=== PATIENT | male | born 1955 | race African-American/Black ===

== ENCOUNTER 2016-12-27 17:00 | Inpatient (IN) | payer OTHER ==
--- NOTE | ~2016-12-27 | HP ---
Unit #: [id number] #: [id number] Patient: ANTONY CORRAL [id number] [facility] [address] [place] [address] [id number] I MR#: [id number] NAME: ANTONY CORRAL ROOM: P203 Age: 61 Sex: M Admission Date: 12/27/2016 : 1955 Attending Physician: Kaiden Lopez M.D. Admitting Physician: Kaiden Lopez M.D. Primary Care Physician: [facility] HISTORY AND PHYSICAL HISTORY OF PRESENT ILLNESS Antony is a 61 year old, admitted to [address] [place] [address] because of his abuse of alcohol. PAST MEDICAL HISTORY 1. Long history of alcohol abuse. 2. High blood pressure. 3. History of DVTs with PE. 4. Hyperlipidemia. 5. Benign prostatic hypertrophy. 6. Chronic obstructive pulmonary disease. PAST SURGICAL HISTORY Nothing reported. ALLERGIES No known drug allergies. SOCIAL HISTORY He smokes one pack per day, drinks at least a fifth of gin on a daily basis, uses marijuana daily, has a long history of other illicit substance abuse to include IV opioids. FAMILY HISTORY Medically noncontributory. REVIEW OF SYSTEMS CONSTITUTIONAL: No fever or chills. HEENT: Denies any sore throat, ear pain or runny nose. CARDIOVASCULAR: Denies chest pain, irregular heart rhythm or palpitations. CHEST: Denies shortness of breath or cough. No hemoptysis. GASTROINTESTINAL: Denies nausea, vomiting, diarrhea or chronic constipation. ENDOCRINE: Denies history of increased thirst or urination. No recent significant weight loss or gain. GENITOURINARY: Denies dysuria, frequency, or hematuria. SKIN: Denies any rashes. HEMATOLOGIC: Denies history of increased bleeding or bruising. MUSCULOSKELETAL: Denies any hot, swollen joints. No generalized muscle pain. NEUROLOGIC: Denies problems with vision or speech. No frequent, severe headaches. No numbness, tingling or weakness in any extremities. Denies loss of bladder or bowel control. Unit #: [id number] #: [id number] Patient: ANTONY CORRAL CURRENT MEDICATIONS 1. Arixtra 7.5 mg daily 2. Lipitor 80 mg daily 3. Milk of magnesia p.r.n. 4. Maalox p.r.n. 5. Tylenol p.r.n. 6. Proventil inhaler p.r.n. 7. Nicotine patch 21 mg daily 8. Coreg 25 mg b.i.d. 9. Flomax 0.8 mg daily 10. Norvasc 10 mg daily 11. Multivitamin one daily 12. Detox protocol PHYSICAL EXAMINATION GENERAL: Alert, well-nourished, no apparent distress. VITAL SIGNS: Blood pressure 100/66, heart rate 80, respirations 16, temperature 98.6. WEIGHT: 175 pounds. HEIGHT: 6 feet 1 inch. SKIN: Warm and dry without rash or lesion. HEENT: Normocephalic. TMs not viewed. Oral and nasal passages clear. Conjunctivae clear. PERRLA. EOMs intact. NECK: Supple without lymphadenopathy or thyromegaly. HEART: Regular rate and rhythm without murmur. LUNGS: Clear. ABDOMEN: Soft, nontender. : Not done. EXTREMITIES: No evidence of cyanosis, clubbing or edema. Moves all without focal deficit. NEUROLOGICAL: Grossly within normal limits. Cranial Nerves: II: Visual huizar are intact. III, IV AND : Extraocular movements are intact. Pupils are equal, round and reactive to light. V: Facial sensation is grossly normal. VII: Facial movements and expression are normal. VIII: Auditory acuity grossly intact. IX, X: Uvula is midline. Phonation is normal. XI: Patient shrugs shoulders and turns head normally. XII: Tongue protrudes in the midline. Sensory and Motor Function: Sensory and motor sensation is grossly normal. Motor: moves all extremities well. Coordination: Gait is normal. Deep Tendon Reflexes: Intact. IMPRESSION Psychiatric admission. RECOMMENDATIONS Psychiatric, per psychiatrist. MEDICAL I see no contraindications to participating in facility's activities. MEDICAL PROGNOSIS Good. MEDICAL CONDITION Stable. Unit #: [id number] #: [id number] Patient: ANTONY CORRAL Dictated by... Jamilah Jennings P.A.-C. for Darcy Kirkpatrick/diane TD: 12/29/2016 05:59 JOB #: [id number] HISTORY AND PHYSICAL Page 1 of 1 X Jamilah Jennings X HISTORY AND PHYSICAL
--- NOTE | ~2016-12-27 | DS ---
Unit #: [id number] #: [id number] Patient: ANTONY CORRAL [id number] [place] [address] [id number] MR#: [id number] NAME: ANTONY CORRAL ROOM: P201 Age: 61 Sex: M Admission Date: 12/27/2016 : 1955 Discharge Date: 12/30/2016 Attending Physician: Kaiden Lopez M.D. Primary Care Physician: [facility] DISCHARGE SUMMARY REASON FOR ADMISSION Alcohol dependency with detox needs. DIAGNOSTIC STUDIES PERTINENT LABORATORY DATA: The patient had routine blood work which included a CMP that showed elevated glucose at 148, chloride of 98, AST of 117, and ALT of 44 in keeping with the patient's history. CBC was pending at the time of discharge. Urine toxicology was negative. RPR was nonreactive. Urinalysis showed trace leukocytes, trace protein, 2+ urobilinogen, and 0 bacteria. No other tests performed. HOSPITAL COURSE The patient was admitted for safety and stabilization for issues with alcohol dependency and withdrawal. The patient had initially been complaining of symptoms of aches and pains "feeling sick," upset stomach, as well as sleep issues and headaches, aches and pains, poor motivation, anergy, restless legs, diaphoresis, and of course tremors. The patient responded well to the detox protocol. Seems fairly isolative to self but pleasant. Denied any issues in terms of suicidal or homicidal thoughts. No evidence of psychosis. This happened during the hospitalization. The patient was maintained on his home medication regimen with no changes. The patient was allowed to use some of his home meds because of pharmacy availability issues overall. By the time of discharge, the patient had markedly improved and is exhibiting no overt detox symptoms. His affect was brighter. He was asking for discharge home with plan to follow up at [facility] and/or . He denied any new complaints. No other medications were started during this hospitalization beyond the detox meds, and the patient was not dispositioned home on anything beyond his home regimen. Overall, the patient was (1) __ maximum benefit from inpatient admission and was discharged home. DISCHARGE DIAGNOSES 1. Alcohol dependency with withdrawal. 2. History of coronary artery disease. 3. Hypertension. 4. Hypercoagulable state. 5. Hyperlipidemia. 6. Vague respiratory issues. The patient could not quantify. DISCHARGE INSTRUCTIONS Follow up with [facility]. 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 CONDITION AT DISCHARGE Improved. PROGNOSIS Moderate. Some guarded as given with the patient's history of long-term use and continued use. DISCHARGE DIET Heart healthy. DISCHARGE ACTIVITY As tolerated with sobriety encouraged. Dictated by... Kaiden Lopez M.D. ROB/donn TD: 12/30/2016 10:34 JOB #: [id number] DISCHARGE SUMMARY Page 1 of 1 X Kaiden Lopez MD X DISCHARGE SUMMARY
--- NOTE | ~2016-12-27 | PN ---
Unit #: [id number] #: [id number] Patient: ANTONY CORRAL [id number] [place] [address] [id number] I MR#: [id number] NAME: ANTONY CORRAL ROOM: P201 Age: 61 Sex: M Admission Date: 12/27/2016 : 1955 Attending Physician: Kaiden Lopez M.D. Admitting Physician: Kaiden Lopez M.D. Primary Care Physician: [facility] PROGRESS NOTES DATE OF SERVICE: 12/29/2016 [facility], [address] [place] [address], room #203, bed #1. SUBJECTIVE This is a 61-year-old male with ongoing issues of alcohol dependency as well as related mood issues. The patient reports still feeling pretty poorly in terms of poor energy, aches and pains, upset stomach, restless legs, mild tremor today, less diaphoretic. He reports sleep was improved overnight. The patient says he does feel a little bit better today, but still having symptoms as noted. Denied any SI. The patient seems much brighter and seemed somewhat brighter in his affect today. MENTAL STATUS EXAMINATION General appearance; this is a moderately groomed male, appears somewhat older than stated age, though good cooperation, eye contact. Speech was clear and coherent. Normal prosody. Mood was "little bit better," less depressed, anxious with a constricted affect. Thought process and content are grossly organized and linear. No overt evidence of psychosis. No SI, no HI reported or elicited. The patient's memory was grossly intact. Associations were normal. Cognitive function was at baseline. Alert and oriented x4. Insight and judgment are limited, but improving. RECOMMENDATIONS We will continue the patient's admission for ongoing issues with detox symptoms as noted above. The patient making progress, but stabilization still an ongoing concern. We will continue to monitor regularly and make adjustments as needed, but likely disposition to center as progress continues. Dictated by... Kaiden Lopez M.D. SB/modl TD: 12/29/2016 12:38 JOB #: [id number] Unit #: [id number] #: [id number] Patient: ANTONY CORRAL [facility] PROGRESS NOTES Page 1 of 1 X Kaiden Lopez MD PROGRESS NOTE
--- NOTE | ~2016-12-27 | PA ---
Unit #: [id number] #: [id number] Patient: ANTONY CORRAL [id number] [place] [address] [id number] I MR#: [id number] NAME: ANTONY CORRAL ROOM: P203 Age: 61 Sex: M Admission Date: 12/27/2016 : 1955 Date of Assessment: 12/28/2016 Attending Physician: Kaiden Lopez M.D. Admitting Physician: Kaiden Lopez M.D. Primary Care Physician: [facility] PSYCHIATRIC ASSESSMENT DATE OF SERVICE 12/28/2106. LOCATION [facility], [address] [place] [address], room #203, bed #1. INFORMANTS The patient and chart, both reliable. CHIEF COMPLAINT "I got to stop drinking alcohol because of my liver." HISTORY OF PRESENT ILLNESS This is a 61-year-old, male, who presents to the Evaluation Services here at [facility] for issues with alcohol dependency and withdrawal treatment. The patient apparently has been drinking for at least 10 years as he puts it, no less than a fifth a day every day. He has never been through withdrawal before, but was recently told by his outpatient physicians that his liver was starting to seriously show signs of damage from his alcohol use and he needed to stop. The patient has a history of cocaine use, but none in many years and occasional marijuana, but he says that his alcohol that is now the drug of choice. He denied any acute emotional issues other than some depression. He complained of aches and pains, upset stomach, headaches, sleep issues, poor energy, some restless legs, some mild sweats and some mild tremors were noted in his hands, but he says he has never actually been through withdrawal before. Last use was at least the day before, if not the day of admission. The patient reports being compliant with his home medications for the most part. He says he may skip a "vitamin or 2," but takes rest of his medications appropriately. The patient is very pleasant, cooperative, seems future and goal oriented at this time. PAST PSYCHIATRIC HISTORY The patient denies any overt psychiatric care inpatient or outpatient. Denies any history of SI, HI or psychosis. FAMILY HISTORY Significant for father who had alcoholism himself. SOCIAL HISTORY The patient is single, lives alone. Has limited grade education, is on disability. Some support with family. His nephew did come with him here to the hospital, but beyond that seems somewhat limited. Unit #: [id number] #: [id number] Patient: ANTONY CORRAL MEDICAL HISTORY Significant for hypertension, coronary artery disease, hypercoagulable state issues, hyperlipidemia, all being treated. ALLERGIES Include no known drug allergies current. SUBSTANCE ABUSE HISTORY As noted above. No history of previous treatment. No history of actual withdrawal. So, no note of seizures, psychosis or other significant symptoms of potential DTs. Other past history of drug use as noted. MEDICATION HISTORY Includes Arixtra 7.5 mg daily subcu, Lipitor 80 mg at bedtime by mouth, Proventil HFA 2 puffs every 4 hours as needed, Humibid LA 600 mg b.i.d. as needed, Coreg 25 mg b.i.d. by mouth, Flomax 0.8 by mouth daily, amlodipine besylate 10 mg by mouth daily. No other home medications. MENTAL STATUS EXAM General appearance; this is a limitedly groomed male, appears somewhat older than stated age. Fairly cooperative and responsive during interview process. Good eye contact. Speech was clear and coherent. Well prosody. Mood was dysphoric with a constricted affect. Thought process and content are grossly organized and linear. No overt evidence of psychosis. No SI, no HI reported or elicited. The patient was grossly oriented. The patient's memory was grossly intact. Associations were normal. Cognitive function was at baseline. Alert and oriented x4. Insight and judgment are limited, regarding his alcohol use. ASSETS AND LIABILITIES Assets include insight about damage to his body from his alcohol use. Liabilities include no previous detox experience, no treatment or outpatient followup care established, limited support family arango. ADMITTING DIAGNOSES 1. Alcohol dependency with withdrawal. 2. Hypertension. 3. Coronary artery disease. 4. Hypercoagulable state. 5. Hyperlipidemia. 6. Respiratory issues, unclear by history. PSYCHIATRIC PLAN Continue the patient's admission for safety and stabilization for ongoing issues with alcohol dependency and insight to withdrawal symptoms as noted above. The patient was placed on CIWA protocol and monitored accordingly. The patient's home medications have been continued and will be monitored again accordingly. I have placed a consult for nurse practitioner, see the patient for concerns of sore throat. Treatment goals will be resolution of symptoms in a safe, controlled environment with discharge planning most likely requiring community resources and/or residential treatment if at all applicable. Dictated by... Kaiden Lopez M.D. Unit #: [id number] #: [id number] Patient: ANTONY CORRAL ROB/cami TD: 12/29/2016 03:12 JOB #: [id number] PSYCHIATRIC ASSESSMENT Page 1 of 1 X Kaiden Lopez MD X PSYCHIATRIC ASSESSMENT
[~2016-12-27 17:00] MED LIST: B/P MED; BACTRIM DS TABL1 TAB PO; IBUPROFEN PO; KEFLEX PO; KETOPROFEN PO; TYLENOL #3 PO
[2016-12-28 10:08] LABS: ALBUMIN SERUM 3.8 g/dL (3.5-5.0); BILIRUBIN,TOTAL 1.9 mg/dL (0.2-2.0); BUN/CREATININE RATIO 14.28; CALCIUM SERUM 9.5 mg/dL (8.4-10.2); CREATININE SERUM 0.7 mg/dL (0.6-1.4); GLOM FILT RATE Estimated 116.5 mL/min (>60); POTASSIUM 4.3 mmol/L (3.5-5.1); PROTEIN TOTAL SERUM 7.1 g/dL (6.0-8.3)
[2016-12-29 09:43] LABS: URINE APPEARANCE CLEAR; URINE BLOOD NEG (NEG); URINE COLOR DK YELLOW; URINE GLUCOSE NEG (NEG); URINE KETONE NEG (NEG); URINE LEUKOCYTE ESTERASE TRACE (NEG); URINE NITRATE NEG (NEG); URINE PROTEIN TRACE (NEG); URINE SPECIFIC GRAVITY 1.018 (1.003-1.035)
[2016-12-29 09:45] LABS: URBCS1 AUWI 0-2 /[HPF] (0-2); URINE BACTERIA AUWI NEG (NEGATIVE); URINE SQUAMOUS EPITHELIAL CELL NONE SEEN /[HPF]
[2016-12-29 10:09] LABS: URINE BILIRUBIN NEG (NEG)
[2016-12-29 10:18] LABS: AMPHETAMINE NEG (NEG); BARBITURATES NEG (NEG); BENZODIAZEPINES NEG (NEG); COCAINE NEG (NEG); MARIJUANA NEG (NEG); OPIATES NEG (NEG); TRICYCLIC ANTIDEPRESSANTS NEG (NEG); U METHADONE NEG (NEG)
== END 2016-12-30 12:05 | disposition home or self-care (01) | DRG 897 ==
LOC: P2S 19:24
PROVIDERS: Psychiatry & Neurology Psychiatry
PROC: HZ2ZZZZ Detoxification Services for Substance Abuse Treatment (ICD-10-PCS; principal; 2016-12-27)
DX: F10.230 Alcohol dependence with withdrawal, uncomplicated (principal); D68.59 Other primary thrombophilia; I10 Essential (primary) hypertension; I25.10 Atherosclerotic heart disease of native coronary artery without angina pectoris; E78.5 Hyperlipidemia, unspecified; Z81.1 Family history of alcohol abuse and dependence; J44.9 Chronic obstructive pulmonary disease, unspecified; Z86.718 Personal history of other venous thrombosis and embolism; Z86.711 Personal history of pulmonary embolism; N40.0 Benign prostatic hyperplasia without lower urinary tract symptoms; F17.210 Nicotine dependence, cigarettes, uncomplicated
CPT/HCPCS: 80053; 80307; 81003; 86592